=== PATIENT | male | born 1980 | race Hispanic/Latino ===

== ENCOUNTER 2016-10-11 12:27 | Emergency (ER) | payer SELFPAY ==
[2016-10-11 12:31] VITALS: BP 126/77; PULSE 98; RESP 20; O2SAT 97
--- NOTE | 2016-10-11 12:44 | ED.REPORT ---
HPI-Abd Pain M Under 40 Date of Service Oct 11, 2016 ED Provider: Dwayne Cotter MD A 36 year old male with no pertinent medical history presents to the ED complaining of lower abdominal pain. The pain began yesterday and has been accompanied by left lower back pain. The pt denies fever, constipation, bloody stools, dysuria, nausea, vomiting or diarrhea. Nursing Notes Stated Complaint: STOMACH PAIN Chief Complaint: Male Abdominal Pain Nursing Notes Reviewed: Yes Allergies: Coded Allergies: No Known Allergies (Unverified Allergy, Unknown, 10/11/16) aspirin (Verified Allergy, Unknown, 10/11/16) Scheduled Ciprofloxacin (Ciprofloxacin) 500 Mg Tablet 500 MG PO BID Metronidazole (Flagyl) 500 Mg Tablet 500 MG PO Q8H Scheduled PRN Hydrocodone-Acetaminophen 5-325 mg (Hydrocodone-Acetaminophen 5-325 mg) 1 Each Tablet 1 TABLET PO Q4H PRN PRN For Pain Ondansetron (Zofran) 4 Mg Tablet 4 MG PO Q4H PRN PRN For Nausea General Time Seen by MD: 12:42 Chief Complaint Abdominal pain Hx Obtained From: Patient Arrived By: Walk-in Sudden in Onset?: No Onset Occurred: 1 day ago Recent Healthcare: No recent doctor visit, No recent hospitalization Similar Sx Previous: No Past Medical History Past Medical History none reported Past Surgical History none reported Smoking History Unknown if Ever Smoker Social History Alcohol Use: "Social" Ambulatory Status Independent Review of Systems Review of Systems Note: denies bloody stools Constitutional: Denies: Fever Respiratory: Denies: Non-productive cough, Shortness of breath GI: Reports: Abdominal pain, Denies: Constipation, Diarrhea, Nausea, Vomiting Male: Denies Dysuria Musculoskeletal: Reports: Back pain (left lower), Denies: Neck pain Complete sys rev & neg: except as marked. Physical Exam Initial Vital Signs Vital Signs (First) Date Time Temp Pulse Resp B/P Pulse Ox O2 Delivery O2 Flow Rate FiO2 10/11/16 12:31 36.9 98 20 126/77 97 Room Air Initial VS: Reviewed General/Constitutional: Awake, Alert Respiratory / Chest: Atraumatic, Breath sounds NL, Breath sounds = bilat, No respiratory distress Cardiovascular: Heart rate NL, Regular rhythm, Heart sounds NL Abdomen: Atraumatic, Soft diffuse lower abdominal tenderness, LLQ and RLQ Back: Atraumatic, Full range of motion, No CVA tenderness Head / Eyes: Atraumatic, Normocephalic, PERRL, EOMI ENT: Atraumatic, Airway patent, Mucous membranes moist Neurologic: Oriented X3, Speech NL, No motor deficits, No sensory deficits Neck: Atraumatic, Supple, Full range of motion Upper Extremity / MS: Atraumatic, Full range of motion Lower Extremity / Pelvis / MS: Atraumatic, Full range of motion Skin: Atraumatic, Color NL, No rash, Warm, Dry Psychiatric: Affect NL, Mood NL Interpretation & Diagnostics Interpretation & Diagnostics: Abdomen CT: IMPRESSION: 1. Sigmoid diverticulitis without evidence of diverticular abscess or macroscopic free air. Dictated by: Stone Moura M.D. on 10/11/2016 at 14:41 Approved by: Stone Moura M.D. on 10/11/2016 at 14:44 Lab Results Interpretation Result Diagram: 10/11/16 1259 10/11/16 1259 Test 10/11/16 12:59 10/11/16 13:00 10/11/16 13:15 White Blood Count 10.7th/mm3 (3.8-10.1) Red Blood Count 6.06mil/mm3 (4.40-5.80) Hemoglobin 17.0g/dL (13.8-17.2) Hematocrit 48.9% (41.0-50.0) Mean Corpuscular Volume 80.7fL (81-100) Mean Corpuscular Hemoglobin 28.1pg (27.0-35.0) Mean Corpuscular Hemoglobin Concent 34.8% (32.0-37.0) Red Cell Distribution Width 13.4% (12.3-15.4) Platelet Count 169bil/L (150-400) Neutrophils (%) (Auto) 72.2% (40-74) Lymphocytes (%) (Auto) 13.6% (14-46) Monocytes (%) (Auto) 12.2% (4-12) Eosinophils (%) (Auto) 1.5% (0-5) Basophils (%) (Auto) 0.2% (0-3) Sodium Level 137mEq/L (134-144) Potassium Level 3.9mEq/L (3.5-5.2) Chloride Level 103mEq/L (97-108) Carbon Dioxide Level 21mmol/L (18-29) Blood Urea Nitrogen 9mg/dL (6-20) Creatinine 0.81mg/dL (0.76-1.27) Estimat Glomerular Filtration Rate 115mL/min (>59) Glucose Level 103mg/dL (60-99) Calcium Level 9.3mg/dL (8.5-10.1) Magnesium Level 1.9mg/dL (1.6-2.6) Total Bilirubin 0.9mg/dL (0.0-1.2) Aspartate Amino Transf (AST/SGOT) 15U/L (0-50) Alanine Aminotransferase (ALT/SGPT) 18U/L (0-44) Alkaline Phosphatase 95U/L (25-150) Total Protein 7.8g/dL (6.4-8.4) Albumin 4.1g/dL (3.4-5.0) Lipase 20U/L (13-60) Urine Color Straw (YELLOW) Urine Appearance Clear (CLEAR,HAZY) Urine pH 6.0 (5.0-8.0) Urine Specific [place] 1.010 (1.003-1.035) Urine Protein Negativemg/dL (NEG,TRACE) Urine Glucose (UA) Negativemg/dL (NEGATIVE) Urine Ketones Negativemg/dL (NEGATIVE) Urine Occult Blood Negative (NEGATIVE) Urine Nitrite Negative (NEGATIVE) Urine Bilirubin Negative (NEGATIVE) Urine Urobilinogen Normalmg/dL (NORMAL) Urine Leukocyte Esterase Negative (NEGATIVE) Urine RBC 0-2/hpf (0-2) Urine WBC 0-5/hpf (0-5) Urine Epithelial Cells Occasional/hpf (NONE-MOD) Urine Crystals None seen (NONE SEEN) Urine Bacteria Few/hpf (NONE-FEW) Urine Hyaline Casts None/lpf (NONE) Urine Granular Casts None seen (NONE SEEN) Urine Waxy Casts None seen (NONE SEEN) Urine Red Blood Cell Casts None seen (NONE SEEN) Urine White Blood Cell Casts None seen (NONE SEEN) Urine Mucus Present (None Seen) Urine Trichomonas None seen (NONE SEEN) Urine Yeast None (NONE SEEN) Urinalysis Comment None Urine Culture Reflexed Not indicated Hold Sullivan Top Tube Received (Received) X-Ray Abdominal Interpretation IMPRESSION: 1. No acute intra-abdominal radiographic abnormality. Dictated by: Stone Moura M.D. on 10/11/2016 at 13:59 Approved by: Stone Moura M.D. on 10/11/2016 at 14:00 Interpretation / Wet Read by: Interpret - Radiologist Re-Eval/Medical Decision Med Decision/Clinical Course 36-year-old male with left lower quadrant pain. CT confirms diverticulitis no abscess or perforation. Pain is controlled. Patient was discharged with antibiotics recommendation bland diet. Return precautions given. Follow up primary doctor in 1-2 days. Return immediately if any new or worsening abdominal pain, nausea vomiting, fevers any other new or worsening symptoms. Source of Hx: Old records Re-Evaluation/Progress #1: Time of Eval: 14:07 Re-Evaluation/Progress Note: Pt rechecked, who remains tender in the LLQ. The need for a CT scan is discussed. Re-Evaluation/Progress #2: Time of Eval: 14:56 Patient Status: Condition improved Re-Evaluation/Progress Note: Pt rechecked, whose pain has improved. Radiology results, diagnosis and plan for discharge are discussed. The pt understands and agrees with the plan. All questions are addressed at this time. Counseled Regarding: Diagnosis, Lab results, Need for follow-up, When/why to return to ED Patient Discharge & Departure Primary Impression: Diverticulitis Diverticulitis site: unspecified part of intestinal tract Diverticulitis bleeding: without bleeding Diverticulitis complication: without perforation or abscess Qualified Code: K57.92 - Diverticulitis of intestine, part unspecified, without perforation or abscess without bleeding Disposition: Home Discharge Condition All VS Reviewed: Yes Condition: Stable Patient Instructions: Acute Abdominal Pain (ED), Diverticulitis (ED) Additional Instructions: Your CT scan shows diverticulitis. Call today to arrange a follow up appointment with your primary care physician within the next 1 to 2 days. You will need a colonoscopy. Return to the emergency department if you develop any new or worsening symptoms including fever, worsening abdominal pain, or inability to toleration food or liquid intake. Mccord tomografa muestra diverticulitis. Llame hoy para concertar zuly margarito de seguimiento con mccord mdico de atencin primaria dentro de los prximos 1 a 2 d as. Necesitar zuly colonoscopia. Regrese al Departamento de emergencias si desarrolla cualquier sntoma nuevo o empeoramiento, incluyendo fiebre, empeoramiento del dolor abdominal o incapacidad para tolerar alimentos o ingesta lquida. Referrals: Susy Young MD (PCP) Scribe Attestation Portions of this note were transcribed by Crispin Arnett. I, Dr. Cotter personally performed the history, physical exam and medical decision-making; I reviewed and confirmed the accuracy of the information in the transcribed note. Signed by: Jennifer Marti, 10/11/16 and 1503. copies to: Susy Young MD, Ben M MD Oct 11, 2016 12:44 CRISPIN ARNETT Oct 11, 2016 12:57
[2016-10-11] MEDS ORDERED: 0.9% Sodium Chloride 1,000 ML IV ONE (12:59)
[2016-10-11] MEDS ORDERED: Ondansetron 2 mg/mL 2 mL Inj IVPUSH PRN (13:00)
[2016-10-11 13:25] LABS: BASOPHILS % (AUTO) 0.2 % (0-3); EOSINOPHILS % (AUTO) 1.5 % (0-5); MONOCYTES % (AUTO) 12.2 % (4-12); Mean Corpuscular Hemoglobin 28.1 pg (27.0-35.0); Mean Corpuscular Volume 80.7 fL (81-100); NEUTROPHILS % (AUTO) 72.2 % (40-74); Platelet Count 169 bil/L (150-400)
[2016-10-11 13:54] LABS: Magnesium 1.9 mg/dL (1.6-2.6)
--- NOTE | 2016-10-11 14:02 | DRSVH ---
PROCEDURE: X-RAY ACUTE ABDOMINAL SERIES ([id number]) INDICATIONS: abd pain TECHNIQUE: One view chest and two views of the abdomen were acquired. COMPARISON: None. FINDINGS: Surgical changes and devices: None. Chest: Lungs are clear. Heart size is normal. No pleural effusions. No pneumoperitoneum. Abdomen: Bowel gas pattern is normal. No suspicious calcifications. Bones: No suspicious bony lesions. IMPRESSION: 1. No acute intra-abdominal radiographic abnormality. Dictated by: Stone Moura M.D. on 10/11/2016 at 13:59 Approved by: Stone Moura M.D. on 10/11/2016 at 14:00
--- NOTE | 2016-10-11 14:45 | DRSVH ---
PROCEDURE: CT ABDOMEN AND PELVIS WITH CONTRAST ([id number]) INDICATIONS: Abdominal pain TECHNIQUE: After the administration of oral and intravenous contrast, 5 mm thick sections acquired from the diap hragms to the symphysis. 5 mm thick coronal and sagittal reformats were performed. For radiation do se reduction, the following was used: automated exposure control, adjustment of mA and/or kV accordi ng to patient size. COMPARISON: None. FINDINGS: Image quality: Excellent. ABDOMEN: Lung bases: There is mild dependent atelectasis. Heart size is normal. Solid organs: Liver and spleen are normal in size and enhancement. Gallbladder appears within geoff l limits. Biliary system is non-dilated. Pancreas enhances normally. No adrenal nodules. Kidneys are normal in size and enhancement, without hydronephrosis. Peritoneum and bowel: Stomach and small bowel loops are normal in caliber and wall thickness. The a ppendix is normal in appearance. There is colonic diverticulosis with associated inflammatory fat st randing and small amount of fluid as well as mild segmental colonic wall thickening in the proximal s igmoid colon consistent with acute diverticulitis. No macroscopic free air or diverticular abscess. A small amount of fluid is present within the pelvis. Nodes and vessels: No retroperitoneal or mesenteric adenopathy. Aorta and inferior vena cava are no rmal in caliber. Miscellaneous: No ventral hernias. PELVIS: Genitourinary: Bladder wall thickness is normal. Miscellaneous: No inguinal hernias or adenopathy. Bones: No suspicious bony lesions. No vertebral body compression fractures. IMPRESSION: 1. Sigmoid diverticulitis without evidence of diverticular abscess or macroscopic free air. Dictated by: Stone Moura M.D. on 10/11/2016 at 14:41 Approved by: Stone Moura M.D. on 10/11/2016 at 14:44
[2016-10-11] MEDS ORDERED: HYDR-4003 PO (14:53)
[2016-10-11] MEDS ORDERED: METR500T PO (14:53)
[2016-10-11] MEDS ORDERED: ONDA4TAB6 PO (14:53)
[2016-10-11] MEDS ORDERED: CIPR-198 PO (14:53)
[2016-10-11 15:03] VITALS: BP 120/68; PULSE 77; RESP 14; O2SAT 97
[2016-10-11 15:19] VITALS: BP 120/68; PULSE 77; RESP 14; O2SAT 97
[2016-10-11 15:44] LABS: APPEARANCE,URINE CLEAR (CLEAR,HAZY); COLOR,URINE STRAW (YELLOW); OCCULT BLOOD,URINE NEGATIVE (NEGATIVE); UROBILINOGEN,URINE NORMAL (NORMAL)
== END 2016-10-11 15:20 | disposition home or self-care (01) ==
LOC: SED 12:27
DX: K57.92 Diverticulitis of intestine, part unspecified, without perforation or abscess without bleeding (principal)
CPT/HCPCS: 74022; 74177; 80053; 81000; 83690; 83735; 85025; 96361; 96374; 96375; 99285; J1885; J2405; J7030; Q9967